=== PATIENT | male | born 1995 | race Caucasian/White ===

== ENCOUNTER 2018-01-12 02:34 | Emergency (ER) | payer MEDICAID, SELFPAY ==
[2018-01-12 02:36] VITALS: BP 145/93; PULSE 125; RESP 16; TEMP 36.2; O2SAT 96; BMI 20.5
--- NOTE | 2018-01-12 03:24 | ED.VISSUMM ---
- ER Visit Summary Date of Service: 01/12/18 Chief Complaint: Panic attack History of Present Illness: The patient is a 22 M presents for a note so he can return to [facility]. History of anxiety had 2 panic attacks today. Left the building. Not allowed back in. Denies any suicidal or homicidal ideations. Was told he supposed be on antidepressants for his symptoms. However he does not want to be on medications. Admits to tobacco, occasional alcohol, denies any illicit drug use. No other complaints. Physical Examination: General: Alert and oriented ?3, no acute distress HEENT: Normocephalic, atraumatic. Moist mucosa membranes Neck: supple, nontender. Cardiovascular: Regular rate 96 and rhythm, no murmurs Respiratory: Normal breath sounds, symmetric, no distress Abdomen: Soft, nontender, nondistended Extremities: Nontender, no edema, pulses intact ?4 Neuro: no focal neurological deficits. Test Results: [] Emergency Department Course and Treatment: Initial heart rate in triage is 125, 96 on my evaluation. Denies any suicidal or homicidal ideations. Anxiety history. He declined any Vistaril. He is discharged with a note to go back to the [facility]. He is given follow-up with counseling center as needed. Treatment Plan: [] Disposition: Discharge Impression: Anxiety This note was generated with [employer] dictation software. It may contain incorrect words, spelling, and punctuation that were not noted in review of the chart prior to signing ED Disposition - Plan for ED Patient: Disposition: Home or Assisted Living Chief Complaint: Other, Pain/Inj Diagnosis: Anxiety Instructions: ED Stress React Referrals: Counseling,Center [GROUP OF PHYSICIANS] - 5-7 Days
[2018-01-12 03:38] VITALS: BP 107/84; PULSE 123; RESP 15; O2SAT 98
== END 2018-01-12 03:39 | disposition home or self-care (01) ==
LOC: ED 03:33
PROVIDERS: Emergency Provider Emergency Medicine
DX: F41.9 Anxiety disorder, unspecified (principal); Z72.0 Tobacco use
CPT/HCPCS: 99282

== ENCOUNTER 2018-01-12 13:35 | Emergency (ER) | payer MEDICAID, SELFPAY ==
[2018-01-12 13:35] VITALS: BP 138/82; PULSE 108; RESP 16; TEMP 35.6; O2SAT 97; BMI 20.5
--- NOTE | 2018-01-12 14:19 | RAD_ITS ---
STUDY: X-RAY CHEST REASON FOR EXAM: Male, 22 years old. Worsening cough and chest congestion. TECHNIQUE: PA and lateral views of the chest. COMPARISON: None. FINDINGS: The lungs are clear and expanded. Scattered calcified granulomas. There is no demonstrated pleural abnormality. Normal size heart. Normal mediastinum and delroy. Normal visualized pulmonary arteries. Normal visualized aortic arch and descending thoracic aorta. Normal visualized thoracic spine. Normal visualized ribs, clavicles, and shoulders. There is no demonstrated abnormality of the visualized soft tissue structures of the upper abdomen. RAD/Chest PA and Lateral IMPRESSION: Normal x-ray examination of the chest. Electronically Signed: Prashant Robledo MD at 14:34 EDT Tel [phone], Service support ,
--- NOTE | 2018-01-12 15:18 | ED.VISSUMM ---
- ER Visit Summary Date of Service: 01/12/18 Chief Complaint: Sinus drainage and cough History of Present Illness: The patient is a 22 M with no primary care physician. He reports that he has had sinus drainage for the past 2 months. He has a cough that is productive of yellow sputum without blood. Feels as though he is coughing up his postnasal drainage. He denies any fever or chills. Reports he does have mild shortness of breath and has been wheezing. He does not have an inhaler that he uses. Physical Examination: Vitals: Stable. Afebrile. General: Well-nourished and well-developed. Head: Normocephalic atraumatic. HEENT: TM within normal limits bilaterally. There is pharyngeal erythema and cobblestoning. No tonsillar enlargement or exudate. Neck: Supple, no lymphadenopathy. No JVD. Nontender. Cardiovascular: Regular rate and rhythm. No murmurs. Respiratory: No respiratory distress. Clear to auscultation bilaterally. Abdominal: Soft, nontender, nondistended, normal bowel sounds. No guarding, rebound, or peritoneal signs. Back: Nontender. Extremities: Nontender, no edema. Skin: Normal color, no rash. Neurologic: Alert and oriented ?3. Cranial nerves II through XII are intact. Normal strength and sensation. Psych: Normal affect. Test Results: Chest x-ray is normal. Emergency Department Course and Treatment: She is resting comfortably. I did have a prolonged discussion about the reason that antibiotics are not indicated. Treatment Plan: He will be discharged with Zyrtec-D and an albuterol MDI. [facility] if not improving. Disposition: To home in improved and stable condition. Impression: 1. URI. 2. Tobacco abuse. This note was generated with [employer] dictation software. It may contain incorrect words, spelling, and punctuation that were not noted in review of the chart prior to signing ED Disposition - Plan for ED Patient: Disposition: Home or Assisted Living Chief Complaint: General Illness Instructions: ED Upper Resp Infec No Abx Tx Prescriptions: Albuterol Inhaler [Ventolin Hfa] 1 - 2 puff INHALATION Q4H PRN PRN #1 inhaler PRN Reason: Wheezing Cetirizine HCl/Pseudoephedrine [Zyrtec-D Tablet] 1 each PO BREAKFAST #20 tab.er.12h Referrals: [facility] [NON-STAFF] - 1-2 Weeks
--- NOTE | 2018-01-12 15:21 | ED.DCSUM_ITS ---
- ER Visit Summary Date of Service: 01/12/18 Chief Complaint: Sinus drainage and cough History of Present Illness: The patient is a 22 M with no primary care physician. He reports that he has had sinus drainage for the past 2 months. He has a cough that is productive of yellow sputum without blood. Feels as though he is coughing up his postnasal drainage. He denies any fever or chills. Reports he does have mild shortness of breath and has been wheezing. He does not have an inhaler that he uses. Physical Examination: Vitals: Stable. Afebrile. General: Well-nourished and well-developed. Head: Normocephalic atraumatic. HEENT: TM within normal limits bilaterally. There is pharyngeal erythema and cobblestoning. No tonsillar enlargement or exudate. Neck: Supple, no lymphadenopathy. No JVD. Nontender. Cardiovascular: Regular rate and rhythm. No murmurs. Respiratory: No respiratory distress. Clear to auscultation bilaterally. Abdominal: Soft, nontender, nondistended, normal bowel sounds. No guarding, rebound, or peritoneal signs. Back: Nontender. Extremities: Nontender, no edema. Skin: Normal color, no rash. Neurologic: Alert and oriented ?3. Cranial nerves II through XII are intact. Normal strength and sensation. Psych: Normal affect. Test Results: Chest x-ray is normal. Emergency Department Course and Treatment: She is resting comfortably. I did have a prolonged discussion about the reason that antibiotics are not indicated. Treatment Plan: He will be discharged with Zyrtec-D and an albuterol MDI. [facility] if not improving. Disposition: To home in improved and stable condition. Impression: 1. URI. 2. Tobacco abuse. This note was generated with [employer] dictation software. It may contain incorrect words, spelling, and punctuation that were not noted in review of the chart prior to signing ED Disposition - Plan for ED Patient: Disposition: Home or Assisted Living Chief Complaint: General Illness Instructions: ED Upper Resp Infec No Abx Tx Prescriptions: Albuterol Inhaler [Ventolin Hfa] 1 - 2 puff INHALATION Q4H PRN PRN #1 inhaler PRN Reason: Wheezing Cetirizine HCl/Pseudoephedrine [Zyrtec-D Tablet] 1 each PO BREAKFAST #20 tab.er.12h Referrals: [facility] [NON-STAFF] - 1-2 Weeks
== END 2018-01-12 15:32 | disposition home or self-care (01) ==
PROVIDERS: Emergency Provider Emergency Medicine
DX: J06.9 Acute upper respiratory infection, unspecified (principal); R06.2 Wheezing; H92.03 Otalgia, bilateral; Z72.0 Tobacco use
CPT/HCPCS: 71046; 99282

== ENCOUNTER 2018-01-15 01:35 | Emergency (ER) | payer MEDICAID, SELFPAY ==
[2018-01-15 01:37] VITALS: BP 145/111; PULSE 110; RESP 21; TEMP 37.4; O2SAT 99; BMI 19.3
--- NOTE | 2018-01-15 01:53 | ED.DCSUM_ITS ---
- ER Visit Summary Date of Service: 01/15/18 Chief Complaint: [] Athlete's foot History of Present Illness: The patient is a 22 M [] complaining of athlete's foot bilaterally. Reports the worst foot fungus I have ever had. No other complaints at this time. Physical Examination: [] There is erythema between the webspaces of all the toes consistent with tinea pedis. Remainder of exam is unremarkable. Test Results: [] None. Emergency Department Course and Treatment: [] Patient given a prescription for ketoconazole. Encouraged PCP follow-up. Treatment Plan: [] Outpatient treatment with antifungal cream. Disposition: [] Discharge, stable. Impression: [] Tinea pedis bilateral This note was generated with [employer] dictation software. It may contain incorrect words, spelling, and punctuation that were not noted in review of the chart prior to signing ED Disposition - Plan for ED Patient: Chief Complaint: Lower Extremity Injury Referrals: Care Physician,No Primary [Primary Care Provider] -
--- NOTE | 2018-01-15 01:53 | ED.DEP ---
ED Disposition - Plan for ED Patient: Chief Complaint: Lower Extremity Injury Instructions: ED Fungal Infec Athlete Foot Prescriptions: Ketoconazole [Nizoral Cream] 1 applic TOPICAL DAILY #1 tube Referrals: Care Physician,No Primary [Primary Care Provider] -
--- NOTE | 2018-01-15 01:57 | ED.RN ---
DISCHARGE INSTRUCTIONS GIVEN TO AND REVIEWED WITH PATIENT, PATIENT DENIES QUESTIONS OR CONCERNS AND VOICES UNDERSTANDING OF DISCHARGE INSTRUCTIONS. PT AMBULATES OUT OF ROOM WITHOUT DIFFICULTY.
== END 2018-01-15 01:59 | disposition home or self-care (01) ==
LOC: ED 01:56
PROVIDERS: Emergency Provider Emergency Medicine
DX: B35.3 Tinea pedis (principal)
CPT/HCPCS: 99282

== ENCOUNTER 2018-01-15 19:12 | Emergency (ER) | payer MEDICAID, SELFPAY ==
[2018-01-15 19:18] VITALS: BP 125/86; PULSE 121; RESP 15; TEMP 35.8; O2SAT 100; BMI 20.7
--- NOTE | 2018-01-15 20:22 | ED.VISSUMM ---
- ER Visit Summary Date of Service: 01/15/18 Chief Complaint: History of Present Illness: The patient is a 22 M per the patient no senior past medical history. Reportedly was brought in by squad from the [facility]. I need to find out more about the recent history. Physical Examination: Young male no acute distress. Lying in bed. Vital signs are stable afebrile. Pulse ox 100% room air no signs of hypoxia. HEENT exam pupils round reactive light. Extra motions are intact. No signs of trauma to his face or scalp. He has pressured speech. Neck nontender no lymphadenopathy. Lungs clear to auscultation bilaterally. Heart tachycardic no murmur. Abdomen is soft and nontender normal bowel sounds no peritoneal signs. Nondistended. Chest wall nontender. He is moving all 4 extremities. They are neurovascularly intact. Nontender. No edema. Bilateral equal symmetrical glove wrapper strength. Bilateral dorsi plantar flexion. Fingertip to nose within normal limits bilaterally. Back exam nontender. Skin unremarkable. No rashes. No petechiae or purpura. No cellulitis. Neurologically is awake he is answering questions and following commands. He has no focal motor deficits. Test Results: CBC normal. BMP normal. Alcohol level negative. Urine tox screen is positive for amphetamines, methamphetamines and cannabis. Emergency Department Course and Treatment: Due to the patient's behavior and paranoia he will undergo a ED mental health screening labs.. Treatment Plan: Multiple repeat exams patient is unchanged. He is a very limited informant. But is in no acute distress and is stable vital signs. He remains afebrile. He does not look septic or toxic. I do suspect the patient has underlying psychiatric illness. But I have nothing to confirm that. He is very limited past medical history. I did speak to 1 of the personnel at the [facility]. They state he is been there for the last 2 weeks. They know of no trauma. He just was acting funny the night after he took some type of pills from one of his bags. Nurse 1 and evaluate the patient's sternal rub him he sat straight up in bed spoke very specifically and very clearly after he cursed at her and then went back to trying to sleep. She will be discharged. He does not want to go back to the [facility]. Disposition: dc Impression: Acute drug abuse Suspect underlying undiagnosed psychiatric illness Malingering This note was generated with [employer] dictation software. It may contain incorrect words, spelling, and punctuation that were not noted in review of the chart prior to signing ED Disposition - Plan for ED Patient: Disposition: Home or Assisted Living Chief Complaint: Overdose Instructions: ED Drug Abuse General Referrals: Counseling,Center [GROUP OF PHYSICIANS] - As soon as possible [facility] [NON-STAFF] - As soon as possible Additional Instructions: Consider outpatient drug abuse counseling or detox. Call and follow-up with the counseling center for evaluation for possible underlying psychiatric illness
--- NOTE | 2018-01-15 20:25 | ED.DCSUM_ITS ---
- ER Visit Summary Date of Service: 01/15/18 Chief Complaint: History of Present Illness: The patient is a 22 M per the patient no senior past medical history. Reportedly was brought in by squad from the [facility]. I need to find out more about the recent history. Physical Examination: Young male no acute distress. Lying in bed. Vital signs are stable afebrile. Pulse ox 100% room air no signs of hypoxia. HEENT exam pupils round reactive light. Extra motions are intact. No signs of trauma to his face or scalp. He has pressured speech. Neck nontender no lymphadenopathy. Lungs clear to auscultation bilaterally. Heart tachycardic no murmur. Abdomen is soft and nontender normal bowel sounds no peritoneal signs. Nondistended. Chest wall nontender. He is moving all 4 extremities. They are neurovascularly intact. Nontender. No edema. Bilateral equal symmetrical general passenger agent strength. Bilateral dorsi plantar flexion. Fingertip to nose within normal limits bilaterally. Back exam nontender. Skin unremarkable. No rashes. No petechiae or purpura. No cellulitis. Neurologically is awake he is answering questions and following commands. He has no focal motor deficits. Test Results: CBC normal. BMP normal. Alcohol level negative. Urine tox screen is positive for amphetamines, methamphetamines and cannabis. Emergency Department Course and Treatment: Due to the patient's behavior and paranoia he will undergo a ED mental health screening labs.. Treatment Plan: Multiple repeat exams patient is unchanged. He is a very limited informant. But is in no acute distress and is stable vital signs. He remains afebrile. He does not look septic or toxic. I do suspect the patient has underlying psychiatric illness. But I have nothing to confirm that. He is very limited past medical history. I did speak to 1 of the personnel at the [facility]. They state he is been there for the last 2 weeks. They know of no trauma. He just was acting funny the night after he took some type of pills from one of his bags. Nurse 1 and evaluate the patient's sternal rub him he sat straight up in bed spoke very specifically and very clearly after he cursed at her and then went back to trying to sleep. She will be discharged. He does not want to go back to the [facility]. Disposition: dc Impression: Acute drug abuse Suspect underlying undiagnosed psychiatric illness Malingering This note was generated with [employer] dictation software. It may contain incorrect words, spelling, and punctuation that were not noted in review of the chart prior to signing ED Disposition - Plan for ED Patient: Disposition: Home or Assisted Living Chief Complaint: Overdose Instructions: ED Drug Abuse General Referrals: Counseling,Center [GROUP OF PHYSICIANS] - As soon as possible [facility] [NON-STAFF] - As soon as possible Additional Instructions: Consider outpatient drug abuse counseling or detox. Call and follow-up with the counseling center for evaluation for possible underlying psychiatric illness
[2018-01-15 20:52] VITALS: BP 112/68; PULSE 94; RESP 14; O2SAT 95
[2018-01-15 21:09] LABS: Absolute Lymphocyte Count 2.19 X10^3/ul (0.83-4.51); Absolute Neutrophil Count 3.4 X10^3/uL (2.0-7.7); Basophil# 0.02 X10^3/uL; Basophil% 0.3 % (0-1); Eosinophil# 0.04 X10^3/uL; Eosinophils% 0.6 % (0-5); Hematocrit 41.1 % (40-54); Hemoglobin 14.7 g/dl (13.0-16.5); Lymphocyte # 2.19 X10^3/ul (4.0); Lymphocyte % 35.3 % (19-41); Mean Corp Hgb Conc 35.8 g/gl (32-36); Mean Corpuscular Hgb 31.1 pg (27.0-32.0); Mean Corpuscular Volume 87.1 fL (80-94); Mean Platelet Vol. 10.3 fl (6.2-12.0); Monocyte# 0.56 X10^3/uL; Neutrophil # 3.39 X10^3/uL (2.7-7.7); Neutrophil % 54.6 % (47-70); POSITIVE COUNT NO; POSITIVE DIFFERENTIAL NO; POSITIVE MORPHOLOGY NO; Platelet Count 187 K/mm3 (150-450); RBC Distribution Width CV 12.4 % (11.6-14.6); RBC Distribution Width SD 38.8 fl (35.1-43.9); Red Blood Count 4.72 M/mm3 (4.6-6.2); White Blood Count 6.2 K/mm3 (4.4-11.0)
[2018-01-15 21:23] LABS: Anion Gap 9 (5-15); BUN 12 mg/dL (7-18); BUN/Creat Ratio 15.4 RATIO (10-20); Calcium,Total 9.2 mg/dL (8.5-10.1); Chloride 103 mmol/L (98-107); Creatinine, Serum 0.78 mg/dL (0.70-1.30); EST Glomerular Filtration Rate 133 mL/min (>60); Est Glom Filt Rate - Afr Amer 161 mL/min (>60); Estimated Creatinine Clearance 130.72 ml/min; Glucose 95 mg/dL (74-106); Potassium 3.7 mmol/L (3.5-5.1); Sodium Level 138 mmol/L (136-145)
[2018-01-15 23:10] LABS: Amphetamine Urine VISTA POSITIVE (<1000 ng/mL); Barbiturate Urine VISTA NEGATIVE (< 200 ng/mL); Benzodiazepine Urine VISTA NEGATIVE (< 200 ng/mL); Cocaine Urine VISTA NEGATIVE (< 300 ng/mL); Ecstacy Urine VISTA POSITIVE (< 500 ng/mL); Methadone Urine VISTA NEGATIVE (< 300 ng/mL); PCP Urine VISTA NEGATIVE (< 25 ng/mL); THC Urine VISTA POSITIVE (< 50 ng/mL); Vista UDS pH Range 6
--- NOTE | 2018-01-15 23:49 | ED.DEP ---
ED Disposition - Plan for ED Patient: Disposition: Home or Assisted Living Chief Complaint: Overdose Instructions: ED Drug Abuse General Referrals: [facility] [NON-STAFF] - As soon as possible Counseling,Center [GROUP OF PHYSICIANS] - As soon as possible Additional Instructions: Consider outpatient drug abuse counseling or detox. Call and follow-up with the counseling center for evaluation for possible underlying psychiatric illness
[2018-01-16] VITALS: BP 96/58; PULSE 86; RESP 16; O2SAT 97
--- NOTE | 2018-01-16 00:14 | ED.RN ---
ATTEMPTED TO DISCUSS POTENTIAL DISCHARGE WITH PT, UNABLE TO ROUSE PT, GRUNTS TO NAME, WILL NOT OPEN EYES, NO VERBAL RESPONSE TO QUESTIONS. LIGHTS IN ROOM TURNED ON, STILL NO RESPONSE TO VERBAL STIMULI, STERNAL RUB PERFORMED, PT SITS UP IMMEDIATELY AND SPEAKS IN FULL SENTENCES, CURSES, STATES DON'T FUCKING DO THAT, I'LL TALK. PT STATES HE WILL NOT RETURN TO THE [facility], I FUCKING HATE THAT PLACE, STATES I'LL JUST GO BACK [facility]. PT REFUSES TO MAKE OTHER DC ARRANGEMENTS BY CALLING FAMILY OR FRIENDS. WILL UPDATE .
[2018-01-16 00:27] VITALS: BP 118/78; PULSE 81; RESP 18; O2SAT 100
--- NOTE | 2018-01-16 00:28 | ED.RN ---
THIS RN IN TO GIVE DC INSTRUCTIONS, PT REFUSES TO DISCUSS WHERE HE WILL GO TONIGHT. ALL BELONGINGS RETURNED TO PT. PT UP IN ROOM, DRESSED SELF, NO SIGNS OF DISTRESS, AMBULATES WITH STEADY GAIT AROUND ROOM.
--- NOTE | 2018-01-16 00:38 | ED.RN ---
WATCHED PT AMBULATE OUT OF DEPT, PT IS FULLY DRESSED WITH BACKPACK ON BACK. CONTINUES TO AMBULATE WITH STEADY GAIT, NO SIGNS OF DISTRESS NOTED.
== END 2018-01-16 00:39 | disposition home or self-care (01) ==
PROVIDERS: Emergency Provider Emergency Medicine
DX: F19.10 Other psychoactive substance abuse, uncomplicated (principal); Z76.5 Malingerer [conscious simulation]; B35.3 Tinea pedis; Z72.0 Tobacco use
CPT/HCPCS: 80048; 80307; 80320; 85025; 99282; 99284; P9612; G0480